=== PATIENT | male | born 1985 | race Caucasian/White ===

== ENCOUNTER 2017-09-09 18:16 | Emergency (ER) ==
[2017-09-09 18:20] VITALS: BP 152/83; TEMP 97.9; BMI 25.0
== END 2017-09-09 19:00 | disposition left against medical advice (07) ==
LOC: ED 18:16
DX: R05 Cough (principal); R09.89 Other specified symptoms and signs involving the circulatory and respiratory systems

== ENCOUNTER 2017-10-25 00:24 | Outpatient (CLI) | END 2017-10-25 00:25 | LOC: NONPT 00:24 | PROVIDERS: ATTEND Family Medicine | DX: J03.90 Acute tonsillitis, unspecified (principal) | CPT/HCPCS: 86308; 87651 ==

== ENCOUNTER 2018-05-24 11:37 | Outpatient (CLI) | END 2018-05-24 11:38 | disposition home or self-care (01) | LOC: RHC-LAB 11:37 | PROVIDERS: ATTEND Nurse Practitioner Family | DX: J02.9 Acute pharyngitis, unspecified (principal) | CPT/HCPCS: 87651 ==